=== PATIENT | female | born 1965 | race Caucasian/White ===

== ENCOUNTER 2017-05-04 18:19 | Emergency (ER) | payer MEDICAID, SELFPAY | END 2017-05-04 20:02 | disposition home or self-care (01) | PROVIDERS: Emergency Provider Nurse Practitioner; Visit Provider Nurse Practitioner | DX: R42 Dizziness and giddiness (principal); J06.9 Acute upper respiratory infection, unspecified | CPT/HCPCS: 81003; 87804; 99201 ==

== ENCOUNTER 2017-06-07 14:36 | Emergency (ER) | payer MEDICAID, SELFPAY ==
[2017-06-07 15:05] VITALS: BP 108/72; PULSE 78; RESP 16; TEMP 36.6; O2SAT 99; BMI 31.2
--- NOTE | 2017-06-07 16:12 | HMH.EDBACK ---
ED Disposition Clinical Impression: Lumbosacral strain Disposition: Home, Self-Care Condition on Discharge: Fair Instructions: DI for Low Back Pain Additional Instructions: 1- rest, off work x 2 days . 2- icy hot. 3- robaxin . 4- folllow up with Dr Malik in 2 days . Prescriptions: Methocarbamol [Robaxin 500mg Tab] 500 mg PO BID #21 tab Referrals: Darian Malik MD [Primary Care Provider] - - Critical Care Critical Care Time: No Attestation: On 06/07/17, the high probability of a clinically significant, sudden or life threatening deterioration of the following system(s) required my full and direct attention, intervention and personal management. The time I documented below is in addition to time spent performing reported procedures but includes the following listed in this critical care notation. Medical Decision Making - Medical Records Medical records reviewed: Yes: I reviewed the patient's medical records. Vital Signs: 06/07/17 15:05 Temperature 98 F Temperature Source Oral Pulse Rate [Left Radial] 78 Respiratory Rate 16 Blood Pressure [Left Arm] 108/72 Blood Pressure Mean [Left Arm] 84 Blood Pressure Source [Left Arm] Automatic Cuff Blood Pressure Position [Left Arm] Sitting 02 Sat by Pulse Oximetry 99 Oxygen Delivery Method Room Air - Sukh Inquiry Pt receiving controlled substance: No Sukh was queried for this patient: No Medical Decision Making Narrative: I had a full discussion with the patient about the care for her back. She understands she will need to be off work for 2 days. Rest and IcyHot. [facility] History I have reviewed the patient's past medical history: Yes Medical History: Denies:: Cancer, Diabetes Mellitus Type 1, Diabetes Mellitus Type 2, MRSA Amputation: No Fractures: No - *Social History Educational Level: Completed High School Smoking Status: Never smoker Alcohol Intake: never - Psychiatric History Expresses thoughts of harming self/others: None Suicide Plan Description: No Plan ROS Obtained: Yes All systems reviewed & no additional complaints Physical Exam - General General appearance: alert, in no apparent distress - Head Head exam: atraumatic, normocephalic, normal inspection - Eye Eye exam: Present: normal appearance, PERRL, EOMI - ENT ENT exam: Present: normal exam, normal oropharynx, mucous membranes moist, TM's normal bilaterally, normal external ear exam - Neck Neck exam: Present: normal inspection, full ROM, trachea midline. Absent: meningismus, lymphadenopathy - Chest Chest inspection: Present: normal inspection, symmetric chest wall rise. Absent: tenderness - Respiratory Respiratory exam: Present: normal lung sounds bilaterally. Absent: respiratory distress - Cardiovascular Cardiovascular exam: Present: regular rate, normal rhythm. Absent: JVD - Abdominal Exam Abdominal exam: Present: soft, normal bowel sounds. Absent: distention, tenderness, guarding - Extremities Exam Extremities exam: Present: normal inspection, full ROM, normal capillary refill. Absent: calf tenderness - Back Exam Back exam: Present: normal inspection, other (Maximum tenderness is over the sacrum.) - Neurological Exam Neurological exam: Present: alert, oriented X3, CN II-XII intact, motor sensory deficit, reflexes normal, other (Bilaterally straight leg raising is 90?. ) - Psychiatric Psychiatric exam: Present: normal affect, normal mood - Skin Skin exam: Present: warm, dry, intact, normal color - Lymphatic Lymphatic Findings: no adenopathy Back Pain HPI - General Chief Complaint: Back Pain/Injury Stated Complaint: AO 06/07/2017 LOWER BACK PAIN Mode of Arrival: Ambulatory Limitations: No Limitations Description of Symptoms (Recalled from ER Triage Doc. by RN): Back pain - History of Present Illness HPI Narrative: 52 years old with history of back pain works in housekeeping at [email or web address]. She was lifting yesterday
--- NOTE | 2017-06-07 16:15 | ED_ITS ---
ED Disposition Clinical Impression: Lumbosacral strain Disposition: Home, Self-Care Condition on Discharge: Fair Instructions: DI for Low Back Pain Additional Instructions: 1- rest, off work x 2 days . 2- icy hot. 3- robaxin . 4- folllow up with Dr Malik in 2 days . Prescriptions: Methocarbamol [Robaxin 500mg Tab] 500 mg PO BID #21 tab Referrals: Darian Malik MD [Primary Care Provider] - - Critical Care Critical Care Time: No Attestation: On 06/07/17, the high probability of a clinically significant, sudden or life threatening deterioration of the following system(s) required my full and direct attention, intervention and personal management. The time I documented below is in addition to time spent performing reported procedures but includes the following listed in this critical care notation. Medical Decision Making - Medical Records Medical records reviewed: Yes: I reviewed the patient's medical records. Vital Signs: 06/07/17 15:05 Temperature 98 F Temperature Source Oral Pulse Rate [Left Radial] 78 Respiratory Rate 16 Blood Pressure [Left Arm] 108/72 Blood Pressure Mean [Left Arm] 84 Blood Pressure Source [Left Arm] Automatic Cuff Blood Pressure Position [Left Arm] Sitting 02 Sat by Pulse Oximetry 99 Oxygen Delivery Method Room Air - Sukh Inquiry Pt receiving controlled substance: No Sukh was queried for this patient: No Medical Decision Making Narrative: I had a full discussion with the patient about the care for her back. She understands she will need to be off work for 2 days. Rest and IcyHot. [facility] History I have reviewed the patient's past medical history: Yes Medical History: Denies:: Cancer, Diabetes Mellitus Type 1, Diabetes Mellitus Type 2, MRSA Amputation: No Fractures: No - *Social History Educational Level: Completed High School Smoking Status: Never smoker Alcohol Intake: never - Psychiatric History Expresses thoughts of harming self/others: None Suicide Plan Description: No Plan ROS Obtained: Yes All systems reviewed & no additional complaints Physical Exam - General General appearance: alert, in no apparent distress - Head Head exam: atraumatic, normocephalic, normal inspection - Eye Eye exam: Present: normal appearance, PERRL, EOMI - ENT ENT exam: Present: normal exam, normal oropharynx, mucous membranes moist, TM's normal bilaterally, normal external ear exam - Neck Neck exam: Present: normal inspection, full ROM, trachea midline. Absent: meningismus, lymphadenopathy - Chest Chest inspection: Present: normal inspection, symmetric chest wall rise. Absent : tenderness - Respiratory Respiratory exam: Present: normal lung sounds bilaterally. Absent: respiratory distress - Cardiovascular Cardiovascular exam: Present: regular rate, normal rhythm. Absent: JVD - Abdominal Exam Abdominal exam: Present: soft, normal bowel sounds. Absent: distention, tenderness, guarding - Extremities Exam Extremities exam: Present: normal inspection, full ROM, normal capillary refill. Absent: calf tenderness - Back Exam Back exam: Present: normal inspection, other (Maximum tenderness is over the sacrum.) - Neurological Exam Neurological exam: Present: alert, oriented X3, CN II-XII intact, motor sensory deficit, reflexes normal, other (Bilaterally straight leg antonio
[2017-06-07 16:28] VITALS: BP 112/70; PULSE 74; TEMP 36.7; O2SAT 98
== END 2017-06-07 16:28 | disposition home or self-care (01) ==
PROVIDERS: Emergency Provider Emergency Medicine; Family Provider Internal Medicine Adolescent Medicine; PCP Emergency Medicine
DX: S39.012A Strain of muscle, fascia and tendon of lower back, initial encounter (principal)
CPT/HCPCS: 99283

== ENCOUNTER 2017-06-26 18:05 | Emergency (ER) | payer MEDICAID, SELFPAY ==
[2017-06-26 18:30] VITALS: BP 142/92; PULSE 83; RESP 18; TEMP 36.7; O2SAT 96; BMI 31.2
--- NOTE | 2017-06-26 18:34 | XR_ITS ---
EXAM: XR lumbar spine 2-3V HISTORY: Low back pain ITS.REASON: PULLED MUSCLE ORDERING PHYSICIAN: Leonel Lewis MD PATIENT AGE: 52 years COMPARISON: None FINDINGS: There is degenerative disc disease at T12-L1 and L1-L2 L4-L5 and L5-S1. No fracture or dislocation. No lytic or blastic change. Normal alignment. IMPRESSION: Lumbar spondylosis with degenerative disc disease at multiple levels worse at L5-S1
--- NOTE | 2017-06-26 22:13 | HMH.EDGENADL ---
ED Disposition Clinical Impression: Lumbosacral strain Qualifiers: Encounter type: initial encounter Qualified Code(s): S39.012A - Strain of muscle, fascia and tendon of lower back, initial encounter Disposition: Home, Self-Care Condition on Discharge: Good Instructions: DI for Low Back Pain Additional Instructions: use meds and see pcp for follow up - sedentary work only for 48 hrs Prescriptions: Meloxicam [Mobic 7.5mg Tab] 7.5 mg PO DAILY #10 tab Referrals: Darian Malik MD [Primary Care Provider] - - Critical Care Critical Care Time: No Attestation: On 06/26/17, the high probability of a clinically significant, sudden or life threatening deterioration of the following system(s) required my full and direct attention, intervention and personal management. The time I documented below is in addition to time spent performing reported procedures but includes the following listed in this critical care notation. Medical Decision Making - Medical Records Medical records reviewed: Yes: I reviewed the patient's medical records. Vital Signs: 06/26/17 18:30 Temperature 98.1 F Temperature Source Oral Pulse Rate [Right Brachial] 83 Respiratory Rate 18 Blood Pressure [Right Arm] 142/92 Blood Pressure Mean [Right Arm] 108 Blood Pressure Source [Right Arm] Automatic Cuff Blood Pressure Position [Right Arm] Sitting 02 Sat by Pulse Oximetry 96 Oxygen Delivery Method Room Air Orders (Tests/Meds): ED MEDICATIONS Generic Name Dose Route Start Last Admin Trade Name Freq PRN Reason Stop Dose Admin Tramadol HCl 1 pema 06/26/17 22:23 Ultram Take Home Pack 50mg (10) PO 06/26/17 22:24 ONCE ONE Discontinued Medications Generic Name Dose Route Start Last Admin Trade Name Freq PRN Reason Stop Dose Admin Indomethacin 25 mg 06/26/17 22:22 Indocin 25mg Capsule PO 06/26/17 22:23 ONCE ONE - Radiology Data #1 Image(s): L-Spine Image Reviewed: Yes I reviewed the patient's radiology image Preliminary Findings: Abnormal, No Fracture Seen - Sukh Inquiry Pt receiving controlled substance: No General Adult HPI - General Chief complaint: PAIN Stated complaint: lower back pain Time Seen by Provider: 06/26/17 22:13 Mode of Arrival: Ambulatory Source of Information: Patient, Medical Record Limitations: No Limitations Description of Symptoms (Recalled from ER Triage Doc. by RN): PULLED BACK MOVING COUCH ; LOW LUMBAR MUSCLE PAIN - History of Present Illness HPI narrative: pt with acute l/s pain after lifting - has hx of same Onset (ago): day(s) Location: back Radiation: back Severity: moderate Quality: aching Consistency: intermittent Associated symptoms: negative: fever/chills - Related Data Home Medications Medication Instructions Recorded Confirmed Methocarbamol [Robaxin 500mg Tab] 500 mg PO BID 06/26/17 06/26/17 Previous Rx's Medication Instructions Recorded Meloxicam [Mobic 7.5mg Tab] 7.5 mg PO DAILY #10 tab 06/26/17 Allergies Allergy/AdvReac Type Severity Reaction Status Date / Time No Known Allergies Allergy Verified 06/26/17 18:[address] [facility] History I have reviewed the patient's past medical history: Yes Medical History: Denies:: Cancer, Diabetes Mellitus Type 1, Diabetes Mellitus Type 2, MRSA Amputation: No Fractures: No - *Social History Educational Level: Completed High School Smoking Status: Current every day smoker Alcohol Intake: never - Psychiatric History Expresses thoughts of harming self/others: None Suicide Plan Description: No Plan ROS Obtained: Yes All systems reviewed & no additional complaints - Constitutional Constitutional: Denies fever(s) - Eyes Eyes: Denies change in vision - ENT Ears, Nose, Mouth, and Throat: Denies sore throat - Cardiovascular Cardiovascular: Denies chest pain - Respiratory Respiratory: No chest congestion, No cough - Gastrointestinal Gastrointestingal: Denies: abdomin
--- NOTE | 2017-06-26 22:16 | ED_ITS ---
ED Disposition Clinical Impression: Lumbosacral strain Qualifiers: Encounter type: initial encounter Qualified Code(s): S39.012A - Strain of muscle, fascia and tendon of lower back, initial encounter Disposition: Home, Self-Care Condition on Discharge: Good Instructions: DI for Low Back Pain Additional Instructions: use meds and see pcp for follow up - sedentary work only for 48 hrs Prescriptions: Meloxicam [Mobic 7.5mg Tab] 7.5 mg PO DAILY #10 tab Referrals: Darian Malik MD [Primary Care Provider] - - Critical Care Critical Care Time: No Attestation: On 06/26/17, the high probability of a clinically significant, sudden or life threatening deterioration of the following system(s) required my full and direct attention, intervention and personal management. The time I documented below is in addition to time spent performing reported procedures but includes the following listed in this critical care notation. Medical Decision Making - Medical Records Medical records reviewed: Yes: I reviewed the patient's medical records. Vital Signs: 06/26/17 18:30 Temperature 98.1 F Temperature Source Oral Pulse Rate [Right Brachial] 83 Respiratory Rate 18 Blood Pressure [Right Arm] 142/92 Blood Pressure Mean [Right Arm] 108 Blood Pressure Source [Right Arm] Automatic Cuff Blood Pressure Position [Right Arm] Sitting 02 Sat by Pulse Oximetry 96 Oxygen Delivery Method Room Air Orders (Tests/Meds): ED MEDICATIONS Generic Name Dose Route Start Last Admin Trade Name Freq PRN Reason Stop Dose Admin Tramadol HCl 1 pema 06/26/17 22:23 Ultram Take Home Pack 50mg (10) PO 06/26/17 22:24 ONCE ONE Discontinued Medications Generic Name Dose Route Start Last Admin Trade Name Freq PRN Reason Stop Dose Admin Indomethacin 25 mg 06/26/17 22:22 Indocin 25mg Capsule PO 06/26/17 22:23 ONCE ONE - Radiology Data #1 Image(s): L-Spine Image Reviewed: Yes I reviewed the patient's radiology image Preliminary Findings: Abnormal, No Fracture Seen - Sukh Inquiry Pt receiving controlled substance: No General Adult HPI - General Chief complaint: PAIN Stated complaint: lower back pain Time Seen by Provider: 06/26/17 22:13 Mode of Arrival: Ambulatory Source of Information: Patient, Medical Record Limitations: No Limitations Description of Symptoms (Recalled from ER Triage Doc. by RN): PULLED BACK MOVING COUCH ; LOW LUMBAR MUSCLE PAIN - History of Present Illness HPI narrative: pt with acute l/s pain after lifting - has hx of same Onset (ago): day(s) Location: back Radiation: back Severity: moderate Quality: aching Consistency: intermittent Associated symptoms: negative: fever/chills - Related Data Home Medications Medication Instructions Recorded Confirmed Methocarbamol [Robaxin 500mg Tab] 500 mg PO BID 06/26/17 06/26/17 Previous Rx's Medication Instructions Recorded Meloxicam [Mobic 7.5mg Tab] 7.5 mg PO DAILY #10 tab 06/26/17 Allergies Allergy/AdvReac Type Severity Reaction Status Date / Time No Known Allergies Allergy Verified 06/26/17 18:36 [facility] History I have reviewed the patient's past medical history:
[2017-06-26 22:40] VITALS: BP 142/92; PULSE 83; RESP 18; TEMP 36.7; O2SAT 96
== END 2017-06-26 22:41 | disposition home or self-care (01) ==
PROVIDERS: Emergency Provider Emergency Medicine; Family Provider Internal Medicine Adolescent Medicine; PCP Emergency Medicine
DX: S39.012A Strain of muscle, fascia and tendon of lower back, initial encounter (principal); X50.0XXA Overexertion from strenuous movement or load, initial encounter; Y92.009 Unspecified place in unspecified non-institutional (private) residence as the place of occurrence of the external cause
CPT/HCPCS: 72100; 99281

== ENCOUNTER 2018-10-15 17:18 | Emergency (ER) | payer MEDICAID, SELFPAY ==
[2018-10-15 17:37] VITALS: BP 147/81; PULSE 84; RESP 20; TEMP 36.6; O2SAT 96; BMI 27.3
[2018-10-15 17:49] VITALS: BP 116/83; PULSE 73; O2SAT 95
--- NOTE | 2018-10-15 18:01 | CT_ITS ---
CT head/brain wo con HISTORY: Dizziness, headache, nausea, vomiting ITS.REASON: dizzy ORDERING PHYSICIAN: PATIENT AGE: 53 years COMPARISON: None TECHNIQUE: Axial images obtained without contrast. Brain and bone windows reviewed. All CT scans at the facility use one or more dose reduction, viz: automated exposure control, ma/kV adjustment per patient size (including targeted exams where dose is matched to indication, i.e. head), or iterative reconstruction technique. FINDINGS: There are low-density changes in the left frontal region with a small hyperdensity in the left frontal region laterally measuring 8 mm. There is moderate surrounding vasogenic edema. No midline shift is evident. No intraventricular hemorrhage or hydrocephalus. No acute calvarial abnormality. IMPRESSION: 1. Left frontal lobe lesion with surrounding vasogenic edema consistent with frontal lobe mass. The dimensions are difficult to determine. The area of hyperdensity measures 8 mm and may not represent the total extent of the mass. Enhanced CT or further MRI suggested for follow-up evaluation. The area of hyperdensity may represent part of a hemorrhagic lesion. No midline shift or hydrocephalus.
--- NOTE | 2018-10-15 18:03 | HMH.EDGENADL ---
ED Disposition Clinical Impression: Brain mass Disposition: Xfer Short-Term Hosp Condition on Discharge: Good - Critical Care Critical Care Time: No Attestation: On , the high probability of a clinically significant, sudden or life threatening deterioration of the following system(s) required my full and direct attention, intervention and personal management. The time I documented below is in addition to time spent performing reported procedures but includes the following listed in this critical care notation. Medical Decision Making - Medical Records Medical records reviewed: Yes: I reviewed the patient's medical records. - Sukh Inquiry Pt receiving controlled substance: No Vital Signs: 10/15/18 17:37 10/15/18 17:49 Temperature 97.8 F Temperature Source Oral Pulse Rate [Left Radial] 84 73 Respiratory Rate 20 Blood Pressure [Right Arm] 147/81 H 116/83 Blood Pressure Mean [Right Arm] 103 94 Blood Pressure Source [Right Arm] Automatic Cuff Blood Pressure Position [Right Arm] Sitting 02 Sat by Pulse Oximetry 96 95 Oxygen Delivery Method Room Air - Lab Data Lab results reviewed: Yes: I reviewed the patient's lab results. Lab Results 10/15/18 17:50: WBC 7.7, RBC 4.76, Hgb 14.7, Hct 42.3, MCV 89.0, MCH 31.0, MCHC 34.8, RDW 12.2, Plt Count 378, MPV 6.2 L, Neut % (Auto) 79.9, Lymph % (Auto) 14.4, [place] % (Auto) 4.8, Eos % (Auto) 0.4, Baso % (Auto) 0.5, Neut # (Auto) 6.1, Lymph # (Auto) 1.1, [place] # (Auto) 0.4, Eos # (Auto) 0.0, Baso # (Auto) 0.0 10/15/18 17:50: Sodium 142, Potassium 4.5, Chloride 105, Carbon Dioxide 28, Anion Gap 13.5, BUN 16, Creatinine 1.05 H, Estimated Creat Clear 61, Estimated GFR 55 L, Est GFR ( Amer) 66, Glucose 123 H, Calcium 9.7, Total Bilirubin 0.7, AST 18, ALT 38, Alkaline Phosphatase 97, Troponin I < 0.02, Total Protein 7.6, Albumin 3.6, Globulin 4.0 H, Albumin/Globulin Ratio 0.9 L, Plasma/Serum Alcohol 0 Result diagrams: 10/15/18 17:50 10/15/18 17:50 Orders (Tests/Meds): ED MEDICATIONS Generic Name Dose Route Start Last Admin Trade Name Freq PRN Reason Stop Dose Admin Sodium Chloride 1,000 mls @ 999 mls/hr 10/15/18 18:15 10/15/18 18:08 Sod Chlor 0.9% 1000ml Bag IV 10/15/18 19:15 999 mls/hr .Q1H1M [facility]ALI Administration Discontinued Medications Generic Name Dose Route Start Last Admin Trade Name Freq PRN Reason Stop Dose Admin Meclizine HCl 25 mg 10/15/18 18:02 10/15/18 18:08 Antivert 25mg Tablet PO 10/15/18 18:03 25 mg ONCE ONE Administration ORDERS Category Date Time Status Drug Screen,Urine Stat Lab 10/15/18 18:01 Ordered ECG Request by /Nse Stat Y 10/15/18 18:01 Ordered - CT Data CT Scan: Head Time Received: 18:[address] Reviewed: Yes: I have viewed the radiologist's interpretation Preliminary Findings: Abnormal Findings Narrative: left frontal mass w/ edema cannot r/o bleed, pt accepted by helicopter transfer to ED by Dr Ramirez ([facility]), pt vss, speech fluent, GCS 15 - ECG Data Tracing #1 I reviewed this ECG and interpreted as documented below: Normal Sinus Rhythm: Yes (no stemi) General Adult HPI - General Chief complaint: Dizziness Stated complaint: Nausa,dizzy,vomiting Time Seen by Provider: 10/15/18 18:03 Mode of Arrival: Ambulatory Limitations: No Limitations Description of Symptoms (Recalled from ER Triage Doc. by RN): c/o dizziness that started one week ago and has hx of vertigo with nausea and vomiting, states it is different everytime so she isnt sure if this is vertigo or not. The dizziness went away for a few weeks and then today she woke up with the same feeling. 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 Only dizzy when she lays down with some blurry vision - History of Present Illness HPI narrative: mild to mod dizziness for one week, feels the room spins if she turns the wrong way, no hearing loss or headache, no fever, no
--- NOTE | 2018-10-15 18:06 | ED_ITS ---
ED Disposition Clinical Impression: Brain mass Disposition: Xfer Short-Term Hosp Condition on Discharge: Good - Critical Care Critical Care Time: No Attestation: On , the high probability of a clinically significant, sudden or life threatening deterioration of the following system(s) required my full and direct attention, intervention and personal management. The time I documented below is in addition to time spent performing reported procedures but includes the following listed in this critical care notation. Medical Decision Making - Medical Records Medical records reviewed: Yes: I reviewed the patient's medical records. - Sukh Inquiry Pt receiving controlled substance: No Vital Signs: 10/15/18 17:37 10/15/18 17:49 Temperature 97.8 F Temperature Source Oral Pulse Rate [Left Radial] 84 73 Respiratory Rate 20 Blood Pressure [Right Arm] 147/81 H 116/83 Blood Pressure Mean [Right Arm] 103 94 Blood Pressure Source [Right Arm] Automatic Cuff Blood Pressure Position [Right Arm] Sitting 02 Sat by Pulse Oximetry 96 95 Oxygen Delivery Method Room Air - Lab Data Lab results reviewed: Yes: I reviewed the patient's lab results. Lab Results 10/15/18 17:50: WBC 7.7, RBC 4.76, Hgb 14.7, Hct 42.3, MCV 89.0, MCH 31.0, MCHC 34.8, RDW 12.2, Plt Count 378, MPV 6.2 L, Neut % (Auto) 79.9, Lymph % (Auto) 14.4, [place] % (Auto) 4.8, Eos % (Auto) 0.4, Baso % (Auto) 0.5, Neut # (Auto) 6.1, Lymph # (Auto) 1.1, [place] # (Auto) 0.4, Eos # (Auto) 0.0, Baso # (Auto) 0.0 10/15/18 17:50: Sodium 142, Potassium 4.5, Chloride 105, Carbon Dioxide 28, Anion Gap 13.5, BUN 16, Creatinine 1.05 H, Estimated Creat Clear 61, Estimated GFR 55 L, Est GFR ( Amer) 66, Glucose 123 H, Calcium 9.7, Total Bilirubin 0.7, AST 18, ALT 38, Alkaline Phosphatase 97, Troponin I < 0.02, Total Protein 7.6, Albumin 3.6, Globulin 4.0 H, Albumin/Globulin Ratio 0.9 L, Plasma/Serum Alcohol 0 Result diagrams: 10/15/18 17:50 10/15/18 17:50 Orders (Tests/Meds): ED MEDICATIONS Generic Name Dose Route Start Last Admin Trade Name Freq PRN Reason Stop Dose Admin Sodium Chloride 1,000 mls @ 999 mls/hr 10/15/18 18:15 10/15/18 18:08 Sod Chlor 0.9% 1000ml Bag IV 10/15/18 19:15 999 mls/hr .Q1H1M [facility] Administration Discontinued Medications Generic Name Dose Route Start Last Admin Trade Name Freq PRN Reason Stop Dose Admin Meclizine HCl 25 mg 10/15/18 18:02 10/15/18 18:08 Antivert 25mg Tablet PO 10/15/18 18:03 25 mg ONCE ONE Administration ORDERS Category Date Time Status Drug Screen,Urine Stat Lab 10/15/18 18:01 Ordered ECG Request by /Nse Stat Y 10/15/18 18:01 Ordered - CT Data CT Scan: Head Time Received: 18:[address] Reviewed: Yes: I have viewed the radiologist's interpretation Preliminary Findings: Abnormal Findings Narrative: left frontal mass w/ edema cannot r/o bleed, pt accepted by helicopter transfer to ED by Dr Ramirez ([facility]), pt vss, speech fluent, GCS 15 - ECG Data Tracing #1 I reviewed this ECG and interpreted as documented below: Normal Sinus Rhythm: Yes (no stemi)
--- NOTE | 2018-10-15 18:12 | PC.NURSE ---
pt back from ct
[2018-10-15 18:13] LABS: Basophils % 0.5 % (0.1-2.0); Eosinophils % 0.4 % (0.1-12.0); Hematocrit 42.3 % (37.0-47.0); Hemoglobin 14.7 g/dL (12.2-16.2); Lymphocytes # 1.1 K/mm3 (0.7-4.5); Lymphocytes % 14.4 % (10-50); Mean Corpuscular HGB Conc 34.8 g/dL (31.8-35.4); Mean Platelet Volume 6.2 fl (7.4-10.4); Monocytes # 0.4 K/mm3 (0.1-1.0); Monocytes % 4.8 % (1.7-9.3); Neutrophils # 6.1 K/mm3 (1.8-7.8); Neutrophils % 79.9 % (37.0-80.0); Platelet Count 378 K/mm3 (142-424); Red Blood Count 4.76 M/mm3 (4.20-5.40); Red Cell Distribution Width 12.2 % (11.5-17.5); White Blood Count 7.7 K/mm3 (4.8-10.8)
[2018-10-15 18:23] LABS: Alanine Aminotransferase 38 U/L (12-78); Albumin Level 3.6 gm/dL (3.4-5.0); Albumin/Globulin Ratio 0.9 (1.1-1.8); Alkaline Phosphatase 97 U/L (46-116); Anion Gap 13.5 mEq/L (5-15); Aspartate Amino Transferase 18 U/L (15-37); Bilirubin,Total 0.7 mg/dL (0.2-1.0); Blood Urea Nitrogen 16 mg/dL (7-18); Calcium 9.7 mg/dL (8.5-10.1); Carbon Dioxide 28 mmol/L (21.0-32.0); Chloride 105 mmol/L (98-107); Creatinine Clearance Estimated 61 mL/min (50-200); Creatinine,Serum 1.05 mg/dL (0.55-1.02); Estimated Glomerular Filt Rate 55 ml/min (>60); GFR (African American) 66 ML/MIN (>60); Glucose 123 mg/dL (74-106); Potassium 4.5 mmoL/L (3.5-5.1); Sodium 142 mmol/L (136-145); Total Protein,Serum 7.6 gm/dL (6.4-8.2); Troponin I < 0.02 ng/ml (0.00-0.06)
[2018-10-15 18:26] LABS: Ethyl Alcohol 0 mg/dL (0-99)
--- NOTE | 2018-10-15 18:48 | PC.NURSE ---
DR HARTLEY IS SPEAKING WITH TRAUMA CORDINATOR FROM [facility]
--- NOTE | 2018-10-15 18:50 | PC.NURSE ---
DR MATHEWS HAS ACCEPTED , DR HARTLEY REQUEST [facility]
--- NOTE | 2018-10-15 18:55 | PC.NURSE ---
[facility] CONTACTED ETA 22 MIN
--- NOTE | 2018-10-15 18:56 | PC.NURSE ---
FACE SHEET FAXED [facility] HAS ACCEPTED
[2018-10-15 19:18] VITALS: BP 155/110; PULSE 100; RESP 18; TEMP 36.6; O2SAT 98
== END 2018-10-15 19:45 | disposition short-term general hospital (02) ==
PROVIDERS: Emergency Provider Emergency Medicine Emergency Medical Services
DX: G93.9 Disorder of brain, unspecified (principal)
CPT/HCPCS: 70450; 80053; 84484; 85025; 93005; 96365; 99284

== ENCOUNTER 2018-10-27 18:36 | Emergency (ER) | payer MEDICAID, SELFPAY ==
[2018-10-27 18:58] VITALS: BP 153/88; PULSE 81; RESP 18; TEMP 36.5; O2SAT 93; BMI 29.0
--- NOTE | 2018-10-27 18:58 | XR_ITS ---
XR chest 2V HISTORY: ITS.REASON: chest heaviness ORDERING PHYSICIAN: David Antoine MD PATIENT AGE: 53 years COMPARISON: None FINDINGS: The cardiomediastinal silhouette and pulmonary vascularity are within normal limits. The lungs are clear without infiltrates, suspicious nodules, or pleural effusions. No acute bony abnormalities. IMPRESSION: Negative chest, no acute finding
--- NOTE | 2018-10-27 19:05 | PC.NURSE ---
pt to rad
[2018-10-27 19:32] LABS: Basophils # 0.1 K/mm3 (0-0.2); Basophils % 0.3 % (0.1-2.0); Eosinophils % 0.1 % (0.1-12.0); Hematocrit 41.8 % (37.0-47.0); Hemoglobin 13.3 g/dL (12.2-16.2); Lymphocytes % 5.9 % (10-50); Mean Corpuscular HGB Conc 31.7 g/dL (31.8-35.4); Mean Corpuscular Hemoglobin 28.8 pg (27.0-31.2); Mean Corpuscular Volume 90.9 fl (81-99); Mean Platelet Volume 6.3 fl (7.4-10.4); Monocytes % 5.6 % (1.7-9.3); Neutrophils # 15.1 K/mm3 (1.8-7.8); Neutrophils % 88.1 % (37.0-80.0); Platelet Count 415 K/mm3 (142-424); Red Cell Distribution Width 12.9 % (11.5-17.5); White Blood Count 17.1 K/mm3 (4.8-10.8)
[2018-10-27 19:36] LABS: MANUAL DIFFERENTIAL MANUAL DIFFERENTIAL (MANUAL DIFF)
[2018-10-27 19:40] LABS: Blood Urea Nitrogen 24 mg/dL (7-18); Calcium 8.7 mg/dL (8.5-10.1); Carbon Dioxide 24 mmol/L (21.0-32.0); Chloride 104 mmol/L (98-107); Creatinine Clearance Estimated 70 mL/min (50-200); Creatinine,Serum 1.18 mg/dL (0.55-1.02); Estimated Glomerular Filt Rate 48 ml/min (>60); GFR (African American) 58 ML/MIN (>60); Glucose 110 mg/dL (74-106); Sodium 139 mmol/L (136-145); Troponin I < 0.02 ng/ml (0.00-0.06)
[2018-10-27 19:42] LABS: Lymphocytes % 4 % (10-50); Monocytes % 1 % (2-9); Neutrophils % 90 % (42-76); Platelet Estimate Normal; RBC Morphology Normal; Total Cells Counted 100
--- NOTE | 2018-10-27 20:03 | HMH.EDCP ---
ED Disposition Clinical Impression: Atypical chest pain Disposition: Home, Self-Care Condition on Discharge: Good Instructions: DI for Atypical Chest Pain Additional Instructions: use meds and see pcp for follow up Prescriptions: Fluconazole [Diflucan 100mg tablet] 100 mg PO DAILY #5 tab Referrals: Provider,Referral, [Primary Care Provider] - - Critical Care Critical Care Time: No Attestation: On 10/27/18, the high probability of a clinically significant, sudden or life threatening deterioration of the following system(s) required my full and direct attention, intervention and personal management. The time I documented below is in addition to time spent performing reported procedures but includes the following listed in this critical care notation. Medical Decision Making - Medical Records Medical records reviewed: Yes: I reviewed the patient's medical records. - Sukh Inquiry Pt receiving controlled substance: No Vital Signs: 10/27/18 18:58 10/27/18 20:18 10/27/18 20:32 Temperature 97.7 F Temperature Source Temporal Artery Scan Pulse Rate [Right Brachial] 81 70 77 Respiratory Rate 18 16 18 Blood Pressure [Right Arm] 153/88 H 132/72 132/74 Blood Pressure Mean [Right Arm] 109 92 93 Blood Pressure Source [Right Arm] Automatic Cuff Automatic Cuff Automatic Cuff Blood Pressure Position [Right Arm] Sitting Sitting Sitting 02 Sat by Pulse Oximetry 93 L 97 97 Oxygen Delivery Method Room Air Room Air Room Air - Lab Data Lab results reviewed: Yes: I reviewed the patient's lab results. Lab Results 10/27/18 19:10: WBC 17.1 H, RBC 4.60, Hgb 13.3, Hct 41.8, MCV 90.9, MCH 28.8, MCHC 31.7 L, RDW 12.9, Plt Count 415, MPV 6.3 L, Neut % (Auto) 88.1 H, Lymph % (Auto) 5.9 L, Prentiss % (Auto) 5.6, Eos % (Auto) 0.1, Baso % (Auto) 0.3, Neut # (Auto) 15.1 H, Lymph # (Auto) 1.0, Prentiss # (Auto) 1.0, Eos # (Auto) 0.0, Baso # (Auto) 0.1, Total Counted 100, Neutrophils % (Manual) 90 H, Band Neutrophils % 5.0, Lymphocytes % (Manual) 4 L, Monocytes % (Manual) 1 L, Platelet Estimate Normal, RBC Morphology Normal 10/27/18 19:10: Sodium 139, Potassium 4.0, Chloride 104, Carbon Dioxide 24, Anion Gap 15.0, BUN 24 H, Creatinine 1.18 H, Estimated Creat Clear 70, Estimated GFR 48 L, Est GFR ( Amer) 58 L, Glucose 110 H, Calcium 8.7, Troponin I < 0.02 Result diagrams: 10/27/18 19:10 10/27/18 19:10 Orders (Tests/Meds): ED MEDICATIONS Discontinued Medications Generic Name Dose Route Start Last Admin Trade Name Freq PRN Reason Stop Dose Admin Belladonna Alkaloids 60 ml 10/27/18 20:56 Gi Cocktail 60ml Udc PO 10/27/18 20:57 ONCE ONE Famotidine 20 mg 10/27/18 20:05 10/27/18 20:17 Pepcid 20mg/2ml Vial IV 10/27/18 20:06 20 mg ONCE ONE Administration Metoclopramide HCl 10 mg 10/27/18 20:05 10/27/18 20:17 Reglan 10mg/2ml Vial IVP 10/27/18 20:06 10 mg ONCE ONE Administration - Radiology Data #1 Image(s): Chest Image Reviewed: Yes I reviewed the patient's radiology image Preliminary Findings: Normal/NAD - ECG Data Tracing #1 Normal Sinus Rhythm: Yes Ischemic changes: non-specific ST-T wave changes - Reevaluation(s) Time: 21:09 Reevaluation #1: better after gi cocktail Chest Pain HPI - General Chief Complaint: Chest Pain Stated Complaint: POSSIBLE SIDE EFFECTS TO MED Time Seen by Provider: 10/27/18 20:00 Mode of Arrival: Family Vehicle Source of Information: Patient, Medical Record Limitations: No Limitations Description of Symptoms (Recalled from ER Triage Doc. by RN): chest heaviness, heart rhythm out of wack; concerned it might be the dexamethasone, but is steadily increasing - History of Present Illness HPI narrative: pt with heavy feeling in chest assoc with meals and no sob or cough - no known heart dis - has been on steroids for brain mass MD complaint: chest pain Onset (ago): day(s) Duration: intermittent Activity at onset: other (eating ) Pa
[2018-10-27 20:18] VITALS: BP 132/72; PULSE 70; RESP 16; O2SAT 97
[2018-10-27 20:32] VITALS: BP 132/74; PULSE 77; RESP 18; O2SAT 97
[2018-10-27 21:30] VITALS: BP 126/69; PULSE 66; RESP 16; TEMP 36.9; O2SAT 98
== END 2018-10-27 21:31 | disposition home or self-care (01) ==
PROVIDERS: Emergency Provider Emergency Medicine
DX: R07.89 Other chest pain (principal); R10.13 Epigastric pain; G93.9 Disorder of brain, unspecified; F41.9 Anxiety disorder, unspecified; E78.5 Hyperlipidemia, unspecified
CPT/HCPCS: 71046; 80048; 84484; 85007; 85025; 93005; 96374; 96375; 99284

== ENCOUNTER → 2020-07-18 17:09 | Outpatient (CLI) | payer MEDICAID, SELFPAY ==
[2020-07-18 18:16] LABS: Basophils # 0.1 K/mm3 (0-0.2); Basophils % 0.9 % (0.1-2.0); Eosinophils # 0.1 K/mm3 (0.0-0.4); Eosinophils % 1.4 % (0.1-12.0); Hematocrit 45.4 % (37.0-47.0); Hemoglobin 14.7 g/dL (12.2-16.2); Lymphocytes % 17.1 % (10-50); Mean Corpuscular HGB Conc 32.5 g/dL (31.8-35.4); Mean Corpuscular Hemoglobin 30.7 pg (27.0-31.2); Mean Corpuscular Volume 94.5 fl (81-99); Mean Platelet Volume 7.3 fl (7.4-10.4); Monocytes # 0.5 K/mm3 (0.1-1.0); Monocytes % 7.9 % (1.7-9.3); Neutrophils # 4.4 K/mm3 (1.8-7.8); Neutrophils % 72.8 % (37.0-80.0); Platelet Count 395 K/mm3 (142-424); Red Cell Distribution Width 12.8 % (11.5-17.5); White Blood Count 6.1 K/mm3 (4.8-10.8)
[2020-07-18 18:19] LABS: Alanine Aminotransferase 22 U/L (12-78); Albumin Level 4.5 g/dl (3.5-5.0); Albumin/Globulin Ratio 1.4 (1.1-1.8); Alkaline Phosphatase 89 U/L (38-126); Anion Gap 14.7 mEq/L (5-15); Aspartate Amino Transferase 26 U/L (14-36); Bilirubin,Total 0.6 mg/dl (0.2-1.3); Blood Urea Nitrogen 16 mg/dl (7-17); Calcium 10.4 mg/dl (8.4-10.2); Carbon Dioxide 24 mmol/L (22.0-30.0); Chloride 106 mmol/L (98-107); Chol/HDL Ratio 3.1 (1-3.5); Cholesterol 199 mg/dl (140-200); Estimated Glomerular Filt Rate 65 ml/min (>60); GFR (African American) 78 ML/MIN (>60); Globulin 3.2 g/dL (1.3-3.2); Glucose 112 mg/dl (74-100); HDL Cholesterol 64 mg/dl (40-60); Potassium 4.7 mmoL/L (3.5-5.1); Sodium 140 mmol/L (136-145); Total Protein,Serum 7.7 g/dl (6.3-8.2); Triglycerides 96 mg/dl (30-150); VLDL Cholesterol 19 mg/dL (0-40)
[2020-07-18 18:31] LABS: Direct LDL Cholesterol 104.19 mg/dL (100-129)
[2020-07-18 18:36] LABS: 25-OH Vitamin D, Total 14.9 ng/mL (30-100)
[2020-07-18 18:37] LABS: T4 (Thyroxine) 8.4 ug/dl (5.53-11.0)
[2020-07-18 18:51] LABS: Thyroid Stimulating Hormone 2.21 uIU/mL (0.465-4.68)
[2020-07-18 19:15] LABS: Hemoglobin A1C 5.6 % (4.0-6.0)
[2020-07-21 09:33] LABS: Barbiturates Screen,Urine Negative ng/ml (<200); Benzodiazepines Screen,Urine Negative ng/ml (<200)
[2020-07-21 09:34] LABS: Amphetamine/Metha Screen,Urine Negative ng/ml (<1000)
[2020-07-21 09:35] LABS: Cannabinoid Screen,Urine Negative ng/ml (<50); Cocaine Screen,Urine Negative ng/ml (<300)
[2020-07-21 09:36] LABS: Methadone Screen,Urine Negative ng/ml (<300); Opiate Screen,Urine Negative ng/ml (<300)
[2020-07-21 09:37] LABS: Phencyclidine Screen,Urine Negative ng/ml (<25)
== END ==
PROVIDERS: Visit Provider Nurse Practitioner Family
DX: F41.9 Anxiety disorder, unspecified (principal); G93.9 Disorder of brain, unspecified; R73.09 Other abnormal glucose; E55.9 Vitamin D deficiency, unspecified
CPT/HCPCS: 80053; 80061; 80305; 82306; 83036; 84436; 84443; 85025

== ENCOUNTER → 2020-08-01 16:54 | Outpatient (CLI) | payer MEDICAID, SELFPAY ==
[2020-08-05 13:37] LABS: Neisseria gonorrhoeae, NAA Negative (Negative)
== END ==
PROVIDERS: Visit Provider Nurse Practitioner Family
DX: L29.9 Pruritus, unspecified (principal)
CPT/HCPCS: 87491; 87591

== ENCOUNTER 2020-12-15 15:26 | Emergency (ER) | payer MEDICAID, SELFPAY ==
[2020-12-15 15:27] VITALS: BP 144/91; PULSE 73; RESP 12; TEMP 36.7; O2SAT 98; BMI 28.9
--- NOTE | 2020-12-15 15:43 | CT_ITS ---
PROCEDURE: CT HEAD/BRAIN WO CON CLINICAL INDICATION: dizziness, known tumor COMPARISON: CT HEADWO CT head/brain wo con from 10/15/2018 TECHNIQUE: Axial images obtained. All CT scans at the facility use one or more dose reduction, viz: automated exposure control, ma/kV adjustment per patient size (including targeted exams where dose is matched to indication, i.e. head), or iterative reconstruction technique. FINDINGS: There is an area of decreased attenuation within the left frontal lobe not significantly changed compared to the exam 10/15/2018. There is a small focus of calcification along the lateral aspect at this area hypoattenuation. This may be due to an area of encephalomalacia with dystrophic calcification. No mass effect is evident at this time. No midline shift, mass effect, intracranial hemorrhage, or hydrocephalus is evident. There is an opacified right mid ethmoid air cell. IMPRESSION: Persistent low-density changes in the left frontal lobe somewhat less apparent compared to the previous study possibly due to an area of encephalomalacia change with dystrophic calcification laterally. Treated neoplasm would be included in the differential diagnosis. Dictated by: Jorge Nash MD 12/15/2020 16:26 Jorge Nash MD in [place] 12/15/2020 16:26
[2020-12-15 15:53] LABS: Basophils # 0.1 K/mm3 (0-0.2); Basophils % 1.2 % (0.1-2.0); Eosinophils % 0.6 % (0.1-12.0); Hemoglobin 15.5 g/dL (12.2-16.2); Lymphocytes # 1.3 K/mm3 (0.7-4.5); Lymphocytes % 18.8 % (10-50); Mean Corpuscular HGB Conc 33.6 g/dL (31.8-35.4); Mean Corpuscular Hemoglobin 30.5 pg (27.0-31.2); Mean Corpuscular Volume 90.8 fl (81-99); Mean Platelet Volume 7.5 fl (7.4-10.4); Monocytes # 0.5 K/mm3 (0.1-1.0); Monocytes % 7.2 % (1.7-9.3); Neutrophils # 4.9 K/mm3 (1.8-7.8); Neutrophils % 72.3 % (37.0-80.0); Platelet Count 436 K/mm3 (142-424); Red Blood Count 5.07 M/mm3 (4.20-5.40); Red Cell Distribution Width 12.9 % (11.5-17.5); White Blood Count 6.8 K/mm3 (4.8-10.8)
--- NOTE | 2020-12-15 15:58 | PC.NURSE ---
Pt with rad.
[2020-12-15 15:59] LABS: Alanine Aminotransferase 20 U/L (12-78); Albumin Level 4.6 g/dl (3.5-5.0); Albumin/Globulin Ratio 1.3 (1.1-1.8); Alkaline Phosphatase 92 U/L (38-126); Anion Gap 11.6 mEq/L (5-15); Aspartate Amino Transferase 25 U/L (14-36); Bilirubin,Total 0.7 mg/dl (0.2-1.3); Blood Urea Nitrogen 15 mg/dl (7-17); Carbon Dioxide 29 mmol/L (22.0-30.0); Chloride 105 mmol/L (98-107); Creatinine Clearance Estimated 67 mL/min (50-200); Estimated Glomerular Filt Rate 57 ml/min (>60); GFR (African American) 69 ML/MIN (>60); Globulin 3.6 g/dL (1.3-3.2); Glucose 120 mg/dl (74-100); Potassium 3.6 mmoL/L (3.5-5.1); Sodium 142 mmol/L (136-145); Total Protein,Serum 8.2 g/dl (6.3-8.2)
[2020-12-15 16:02] LABS: Microscopic, Urine URINE MICROSCOPIC (MICROSCOPIC)
[2020-12-15 16:10] LABS: Appearance,Urine SL CLOUDY (Clear); Bilirubin,Urine Negative (Negative); Blood, Urine 1+ (Negative); Color,Urine YELLOW (Yellow); Glucose,Urine (UA) Negative (Negative); Ketones,Urine Negative (Negative); Leukocyte Esterase,Urine 3+ (Negative); Nitrate,Urine POSITIVE (Negative); Protein,Urine Negative (Negative); Specific Gravity, Urine 1.025 (1.005-1.030); Urobilinogen,Urine 0.2 EU/dl (0.2)
--- NOTE | 2020-12-15 16:13 | PC.NURSE ---
Pt returned from rad.
--- NOTE | 2020-12-15 16:27 | HMH.EDGENADL ---
ED Disposition Clinical Impression: Benign paroxysmal positional vertigo Qualifiers: Laterality: unspecified laterality Qualified Code(s): H81.10 - Benign paroxysmal vertigo, unspecified ear Disposition: Home, Self-Care Condition on Discharge: Good Instructions: Vertigo, Fainting Additional Instructions: Please take meclizine as needed for symptom management. Please follow-up with your PCP for further evaluation. Prescriptions: Meclizine HCl [Meclizine 25mg Tab] 25 mg PO Q6H PRN #20 tab PRN Reason: Vertigo Prescription Printed Referrals: Yanique Marina APRN [Primary Care Provider] - Forms: Work/School Release - Critical Care Critical Care Time: No Attestation: On 12/15/20, the high probability of a clinically significant, sudden or life threatening deterioration of the following system(s) required my full and direct attention, intervention and personal management. The time I documented below is in addition to time spent performing reported procedures but includes the following listed in this critical care notation. Medical Decision Making - Medical Records Medical records reviewed: Yes: I reviewed the patient's medical records. - Sukh Inquiry Pt receiving controlled substance: No Vital Signs: 12/15/20 15:27 12/15/20 16:30 Temperature 98.1 F Temperature Source Oral Pulse Rate 68 Pulse Rate [Right Radial] 73 Respiratory Rate 12 13 Blood Pressure 144/81 H Blood Pressure [Right Arm] 144/91 H Blood Pressure Mean [Right Arm] 108 Blood Pressure Source [Right Arm] Automatic Cuff Blood Pressure Position [Right Arm] Sitting 02 Sat by Pulse Oximetry 98 100 Oxygen Delivery Method Room Air - Lab Data Lab Results 12/15/20 15:41: WBC 6.8, RBC 5.07, Hgb 15.5, Hct 46.0, MCV 90.8, MCH 30.5, MCHC 33.6, RDW 12.9, Plt Count 436 H, MPV 7.5, Neut % (Auto) 72.3, Lymph % (Auto) 18.8, Cuming % (Auto) 7.2, Eos % (Auto) 0.6, Baso % (Auto) 1.2, Neut # (Auto) 4.9, Lymph # (Auto) 1.3, Cuming # (Auto) 0.5, Eos # (Auto) 0.0, Baso # (Auto) 0.1 12/15/20 15:41: Sodium 142, Potassium 3.6, Chloride 105, Carbon Dioxide 29, Anion Gap 11.6, BUN 15, Creatinine 1.00, Estimated Creat Clear 67, Estimated GFR 57 L, Est GFR ( Amer) 69, Glucose 120 H, Calcium 10.0, Total Bilirubin 0.7, AST 25, ALT 20, Alkaline Phosphatase 92, Total Protein 8.2, Albumin 4.6, Globulin 3.6 H, Albumin/Globulin Ratio 1.3 12/15/20 15:55: Urine Color Yellow, Urine Appearance Sl cloudy, Urine pH 6.0, Ur Specific Devine 1.025, Urine Protein Negative, Urine Glucose (UA) Negative, Urine Ketones Negative, Urine Blood 1+, Urine Nitrate Positive, Urine Bilirubin Negative, Urine Urobilinogen 0.2, Ur Leukocyte Esterase 3+ A, Urine RBC 3-5, Urine WBC 20-50, Ur Squamous Epith Cells Occasional, Urine Bacteria None Result diagrams: 12/15/20 15:41 12/15/20 15:41 Orders (Tests/Meds): ED MEDICATIONS Discontinued Medications Generic Name Dose Route Start Last Admin Trade Name Freq PRN Reason Stop Dose Admin Meclizine HCl 25 mg 12/15/20 16:26 12/15/20 16:34 Meclizine 25mg Tablet PO 12/15/20 16:27 25 mg ONCE ONE Administration ORDERS Category Date Time Status Urine Culture Stat Micro 12/15/20 15:55 Received Medical Decision Narrative: Upon presentation, patient is hemodynamically stable and nontoxic-appearing. Patient presents with positional dizziness and vertigo. Differential diagnosis includes but is not limited to BPPV, cerebral edema, mass-effect. Labs including CBC, CMP were obtained along with a CT head. Patient was given 25 mg p.o. meclizine for symptomatic management. I reviewed patient's labs which were nonactionable. Patient CT head demonstrates improvement from prior CT with encephalomalacia. Did not demonstrate any new intraparenchymal masses or bleeds or cerebral edema. Upon reassessment, patient states that she continues to feel dizzy despite meclizine. It is likely patient has BPPV given that it is worse with any
[2020-12-15 16:30] VITALS: BP 144/81; PULSE 68; RESP 13; O2SAT 100
[2020-12-15 16:38] LABS: Squamous Epithelial Cell,Urine Occasional #/hpf (0-5); WBC,Urine 20-50 #/hpf (0-3)
[2020-12-15 17:35] VITALS: BP 150/88; PULSE 76; RESP 18; TEMP 36.7; O2SAT 98
== END 2020-12-15 17:45 | disposition home or self-care (01) ==
PROVIDERS: Emergency Provider Emergency Medicine; PCP Nurse Practitioner Family
DX: H81.10 Benign paroxysmal vertigo, unspecified ear (principal); G93.9 Disorder of brain, unspecified
CPT/HCPCS: 70450; 80053; 81001; 85025; 87086; 87088; 87186; 99282

== ENCOUNTER → 2021-03-09 17:29 | Outpatient (CLI) | payer MEDICAID, SELFPAY ==
[2021-03-09 18:20] LABS: Chloride 104 mmol/L (98-107); Potassium 3.7 mmoL/L (3.5-5.1); Sodium 139 mmol/L (136-145)
[2021-03-09 18:23] LABS: Anion Gap 8.7 mEq/L (5-15); Blood Urea Nitrogen 9 mg/dl (7-17); Calcium 9.8 mg/dl (8.4-10.2); Carbon Dioxide 30 mmol/L (22.0-30.0); Estimated Glomerular Filt Rate 65 ml/min (>60); GFR (African American) 78 ML/MIN (>60); Glucose 93 mg/dl (74-100)
== END ==
PROVIDERS: Visit Provider Specialist
DX: D32.9 Benign neoplasm of meninges, unspecified (principal); R42 Dizziness and giddiness
CPT/HCPCS: 36415; 80048

== ENCOUNTER → 2021-03-11 09:20 | Outpatient (CLI) | payer MEDICAID, SELFPAY ==
--- NOTE | 2021-03-11 09:20 | MR_ITS ---
PROCEDURE: MR HEAD/BRAIN WO/W CON CLINICAL INDICATION: known left frontal meningoma Vertigo COMPARISON: CT CT HEAD/BRAIN WO CON from 12/15/2020 TECHNIQUE: Routine multiplanar multi echo sequences are performed with 14 mL ProHance gadolinium enhancement. FINDINGS: There is a 1.4 x 1.3 cm homogeneously enhancing dural-based lesion in the left frontal lobe. It is not clear whether this lesion is definitely extra-axial or intra-axial. There is abundant surrounding vasogenic edema associated with this lesion. There is no erosion of the calvarium overlying the lesion. There is mild diffusion restriction within lesion however it some of this corresponds to the region that is calcified on the CT. There are no other enhancing lesions. There is no hydrocephalus. There is no significant midline shift. There is mild mass effect on the frontal horn of the left lateral ventricle by the vasogenic edema. There are no other areas of restricted diffusion. The sinuses are clear. The flow voids are present. Dural venous sinuses are patent. Orbits appear unremarkable. Calvarium appears unremarkable. IMPRESSION: Left frontal homogeneously enhancing dural-based lesion measuring 1.4 x 1.3 cm producing marked vasogenic edema. Differential considerations include meningioma or dural based metastasis. It is unusual for meningiomas to produce this degree of vasogenic edema although this could represent a higher grade meningioma. Referral to neurosurgery is recommended if not already obtained. Dictated by: Arline Contreras MD 03/11/2021 14:13 Arline Contreras MD in [place] 03/11/2021 14:13
== END ==
PROVIDERS: PCP Nurse Practitioner Family; Visit Provider Nurse Practitioner Family
DX: R42 Dizziness and giddiness (principal); D32.9 Benign neoplasm of meninges, unspecified
CPT/HCPCS: 70553; A9576

== ENCOUNTER → 2021-03-30 13:00 | Outpatient (CLI) | payer MEDICAID, SELFPAY ==
[2021-03-30 14:49] LABS: Adenovirus,PCR Not Detected (NotDetected); Coronavirus 229E Not Detected (NotDetected); Coronavirus NL63 Not Detected (NotDetected); Coronavirus OC43 Not Detected (NotDetected); Coronovirus HKU1,PCR Not Detected (NotDetected); Human Metapneumovirus Not Detected (NotDetected); Influenza A, PCR Not Detected (NotDetected); Influenza AH1, 2009 Not Detected (NotDetected); Influenza AH1, PCR Not Detected (NotDetected); Influenza AH3,PCR Not Detected (NotDetected); Influenza B, PCR Not Detected (NotDetected); Parainfluenza 1, PCR Not Detected (NotDetected); Rhinovirus/Enterovirus Not Detected (NotDetected)
[2021-03-30 14:50] LABS: Bordetella Pertussis Not Detected (NotDetected); Chlamydophila Pneumoniae, PCR Not Detected (NotDetected); Mycoplasma Pneumoniae, PCR Not Detected (NotDetected); Parainfluenza 2, PCR Not Detected (NotDetected); Parainfluenza 3, PCR Not Detected (NotDetected); Parainfluenza 4, PCR Not Detected (NotDetected); Respiratory Syncytial Virus Not Detected (NotDetected)
[2021-03-30 17:18] LABS: Coronavirus 19, PCR Detected (NotDetected)
== END ==
PROVIDERS: Visit Provider Nurse Practitioner Family
DX: Z20.822 Contact with and (suspected) exposure to COVID-19 (principal); U07.1 COVID-19; J06.9 Acute upper respiratory infection, unspecified
CPT/HCPCS: 87581; 87632; 87798; C9803; U0003; U0005

== ENCOUNTER 2021-04-01 09:36 | Outpatient (CLI) | payer MEDICAID, SELFPAY ==
[2021-04-01 10:45] VITALS: BP 144/85; PULSE 88; RESP 18; TEMP 36.7; O2SAT 98
[2021-04-01 11:00] VITALS: BP 139/82; PULSE 89; RESP 18; TEMP 36.7; O2SAT 98
[2021-04-01 11:15] VITALS: BP 135/87; PULSE 88; RESP 18; O2SAT 97
[2021-04-01 11:30] VITALS: BP 136/81; BP 149/85; PULSE 86; PULSE 88; RESP 18; O2SAT 98; O2SAT 99
[2021-04-01 11:45] VITALS: BP 140/79; PULSE 84; RESP 18; O2SAT 98
[2021-04-01 12:20] VITALS: BP 134/82; PULSE 81; RESP 18; TEMP 36.8; O2SAT 97
== END 2021-04-01 12:20 | disposition home or self-care (01) ==
LOC: INF 09:38
PROVIDERS: PCP Nurse Practitioner Family; Visit Provider Nurse Practitioner Family
DX: U07.1 COVID-19 (principal); Z23 Encounter for immunization
CPT/HCPCS: 96365

== ENCOUNTER → 2022-06-08 11:50 | Outpatient (CLI) | payer MEDICAID, SELFPAY ==
[2022-06-08 12:39] LABS: Basophils # 0.1 K/mm3 (0-0.2); Basophils % 1.5 % (0.1-2.0); Eosinophils # 0.1 K/mm3 (0.0-0.4); Eosinophils % 2.3 % (0.1-12.0); Hematocrit 45.4 % (37.0-47.0); Hemoglobin 14.8 g/dL (12.2-16.2); Lymphocytes % 20.1 % (10-50); Mean Corpuscular HGB Conc 32.5 g/dL (31.8-35.4); Mean Corpuscular Hemoglobin 30.7 pg (27.0-31.2); Mean Corpuscular Volume 94.4 fl (81-99); Mean Platelet Volume 7.6 fl (7.4-10.4); Monocytes # 0.4 K/mm3 (0.1-1.0); Monocytes % 8.9 % (1.7-9.3); Neutrophils # 3.3 K/mm3 (1.8-7.8); Neutrophils % 67.2 % (37.0-80.0); Platelet Count 426 K/mm3 (142-424); Red Blood Count 4.81 M/mm3 (4.20-5.40); Red Cell Distribution Width 12.8 % (11.5-17.5); White Blood Count 4.9 K/mm3 (4.8-10.8)
[2022-06-08 13:15] LABS: Alanine Aminotransferase 29 U/L (12-78); Albumin Level 4.5 g/dl (3.5-5.0); Albumin/Globulin Ratio 1.5 (1.1-1.8); Alkaline Phosphatase 78 U/L (38-126); Anion Gap 10.4 mEq/L (5-15); Aspartate Amino Transferase 31 U/L (14-36); Bilirubin,Total 0.7 mg/dl (0.2-1.3); Blood Urea Nitrogen 17 mg/dl (7-17); Calcium 9.9 mg/dl (8.4-10.2); Carbon Dioxide 29 mmol/L (22.0-30.0); Chloride 105 mmol/L (98-107); Chol/HDL Ratio 3.1 (1-3.5); Cholesterol 223 mg/dl (140-200); Estimated Glomerular Filt Rate 57 ml/min (>60); GFR (African American) 69 ML/MIN (>60); Glucose 102 mg/dl (74-100); HDL Cholesterol 71 mg/dl (40-60); Potassium 4.4 mmoL/L (3.5-5.1); Sodium 140 mmol/L (136-145); Total Protein,Serum 7.5 g/dl (6.3-8.2); Triglycerides 57 mg/dl (30-150); VLDL Cholesterol 11 mg/dL (0-40)
[2022-06-08 13:26] LABS: Direct LDL Cholesterol 119.32 mg/dL (100-129)
[2022-06-08 13:30] LABS: 25-OH Vitamin D, Total 30.5 ng/mL (30-100)
[2022-06-08 13:45] LABS: Thyroid Stimulating Hormone 2.09 uIU/mL (0.465-4.68)
[2022-06-09 10:15] LABS: HIV Screen 4th Generation wRfx Non Reactive (Non Reactive); HSV 2 IgG, Type Spec <0.91 index (0.00-0.90)
[2022-06-09 14:20] LABS: Rapid Plasma Reagin Ab Titer Non Reactive (NonRea<1:1)
[2022-06-10 14:47] LABS: Peripheral Smear Review Scanned Result
[2022-06-10 21:08] LABS: Neisseria gonorrhoeae, NAA Negative (Negative)
[2022-06-19 03:46] LABS: Hep A Ab, IgM Negative; Hepatitis B Core Antibody IgM Negative; Hepatitis B Surface Antigen Negative; Hepatitis C Antibody <0.1
== END ==
PROVIDERS: PCP Physician Assistant; Visit Provider Physician Assistant
DX: Z20.2 Contact with and (suspected) exposure to infections with a predominantly sexual mode of transmission (principal); B96.29 Other Escherichia coli [E. coli] as the cause of diseases classified elsewhere
CPT/HCPCS: 80053; 80061; 80074; 82306; 84443; 85025; 86593; 86695; 86703; 86790; 87086; 87186; 87210; 87491; 87591; G0432

== ENCOUNTER → 2022-08-02 23:21 | Outpatient (CLI) | payer MEDICAID, SELFPAY | PROVIDERS: PCP Physician Assistant; Visit Provider Physician Assistant | DX: R39.9 Unspecified symptoms and signs involving the genitourinary system (principal); B96.89 Other specified bacterial agents as the cause of diseases classified elsewhere | CPT/HCPCS: 87086; 87088; 87186 ==

== ENCOUNTER 2022-12-31 16:10 | Emergency (ER) | payer MEDICAID, SELFPAY ==
[2022-12-31 16:35] VITALS: BP 137/89; PULSE 78; RESP 18; TEMP 36.9; O2SAT 97; BMI 28.7
--- NOTE | 2022-12-31 17:06 | EXP.UTC ---
Discharge Plan Disposition Patient Disposition: Home, Self-Care Condition: Good Prescriptions Prescriptions: New cyclobenzaprine 10 mg tablet 10 mg PO TID PRN (Reason: muscle spasm) Qty: 12 0RF methylprednisolone [Medrol (Jatin)] 4 mg tablets,dose pack See Rx Instructions .Route .COMPLEX 6 Days Qty: 21 0RF Rx Instructions: taper pack; Referrals Follow up/Referrals: Beulah Zheng PA [Primary Care Provider] - See instructions Activity Restrictions/Add. Instructions Additional Instructions/Restrictions: *Ibuprofen jaspreet 6/8 hours with meal as needed for pain/inflammation *Remember you had a Toradol shot in the clinic today, which is similar to Motrin *Not additional anti-inflammatory like motrin, aleve, advil with the above amount of ibuprofen. You can still take Tylenol every 4 hours as needed if you need something else for pain *Ice 20 minutes every 2 hours for the first 48 hours after the initial injury followed by moist heat every 20 minutes 3-4 times a day to affected area *Muscle relaxer every 8 hours as needed for muscle spasms but remember, it WILL cause drowsiness You cannot take it and drive, operate machinery or care for small children. *Keep this area active, no movement leads to more stiffness, However take it easy and avoid heavy lifting pushing or pulling *Follow up with you family doctor if no improvement for further treatment Clinical Impressions Clinical Impression: Low Back Pain Stand Alone Forms Stand Alone Forms: Work/School Release Instructions Patient Instructions: Low Back Pain Discharge ED Provider: Claire Dhaliwal [facility] General Stated complaint: AO 12/30 back pain Mode of Arrival: Ambulatory Source of Information: Patient Limitations: No Limitations Time Seen by Provider: 12/31/22 17:06 Description of Symptoms (Recalled from Triage Doc. by RN): PATIENT C/O PAIN TO RIGHT LOWER BACK THAT STARTED 2 DAYS AGO AFTER LIFTING HEAVY TRASH CANS HEENT Symptoms (Recalled from RN notes): No Resp Symptoms (Recalled from RN notes): No Skin Symptoms (Recalled from RN notes): No MS Symptoms (Recalled from RN notes): Yes Functional Status (Recalled from RN notes): WNL History of Present Illness Provider Complaint: Patient states she was lifting heavy trash cans at work a couple days ago and she started having pain in her lower back area and at times it goes into her right hip States that she has a bad back but not sure if it is her back or if she may have UTI but she doesnt usually have back pain with a UTI States that feels like it does wheen her back acts up Denies loss of control of bowel or bladder Related Data Previous Rx's Medication Instructions Recorded cyclobenzaprine 10 mg tablet 10 mg PO TID PRN muscle spasm #12 12/31/22 tabs methylprednisolone 4 mg tablets in See Rx Instructions .Route 12/31/22 a dose pack (Medrol (Jatin)) .COMPLEX 6 days #21 tabs Allergies Allergy/AdvReac Type Severity Reaction Status Date / Time No Known Allergies Allergy Verified 10/22/22 09:12 Worker's Comp Is this a Worker's Comp case?: No [facility] Disclaimer: The information contained in this section may have been updated after the patient was seen, as this information can be updated by other users. Medical History Benign paroxysmal positional vertigo Social History Smoking Status: Never smoker second hand exposure: No alcohol intake: current substance use type: denies use current occupational status: employed Travel in the last 8 weeks: None household members: none housing: apartment number of children: 2 current occupational exposures/hazards: No caffeine: Yes ROS Obtained: Yes All systems reviewed & no additional complaints except as documented and Yes Systems reviewed as appropriate & no additional complaints except as documented Luisi
[2022-12-31 17:33] LABS: Microscopic, Urine URINE MICROSCOPIC (MICROSCOPIC)
[2022-12-31 17:50] LABS: Appearance,Urine CLEAR (Clear); Bilirubin,Urine Negative (Negative); Blood, Urine TRACE-I (Negative); Color,Urine STRAW (Yellow); Glucose,Urine (UA) Negative (Negative); Ketones,Urine Negative (Negative); Leukocyte Esterase,Urine Negative (Negative); Nitrate,Urine Negative (Negative); Protein,Urine Negative (Negative); Urobilinogen,Urine 0.2 EU/dl (0.2)
[2022-12-31 18:12] VITALS: BP 137/89; PULSE 78; RESP 18; TEMP 36.9; O2SAT 97
[2022-12-31 18:16] LABS: Bacteria,Urine Trace /lpf; Squamous Epithelial Cell,Urine Occasional #/hpf (0-5)
== END 2022-12-31 18:26 | disposition home or self-care (01) ==
PROVIDERS: Emergency Provider Nurse Practitioner; PCP Physician Assistant
DX: M54.50 Low back pain, unspecified (principal); X50.0XXA Overexertion from strenuous movement or load, initial encounter
CPT/HCPCS: 81001; 96372; 99204; 99212; G0463

== ENCOUNTER 2023-03-05 15:50 | Emergency (ER) | payer MEDICAID, SELFPAY ==
[2023-03-05 15:52] VITALS: BP 148/87; PULSE 100; RESP 18; TEMP 36.9; O2SAT 95; BMI 29.2
--- NOTE | 2023-03-05 16:45 | EXP.UTC ---
Discharge Plan Disposition Patient Disposition: Home, Self-Care Condition: Good Prescriptions Prescriptions: New iruooijgyklwkcm-bvflcvelt-FC [Bromfed DM] 2-30-10 mg/5 mL syrup 10 ml PO Q4-6H PRN (Reason: cold symptoms) Qty: 200 0RF azithromycin 250 mg tablet See Rx Instructions .ROUTE .COMPLEX Qty: 6 0RF Rx Instructions: For 250 mg dose pack: take 500 mg today (day 1), then 250 mg for 4 days (days 2-5) Referrals Follow up/Referrals: Beulah Zheng PA [Primary Care Provider] - See instructions Activity Restrictions/Add. Instructions Additional Instructions/Restrictions: Take Bromfed this weekend and if no better then start antibiotic. Clinical Impressions Clinical Impression: Upper respiratory tract infection Qualifiers: URI type: unspecified URI Qualified Code(s): J06.9 - Acute upper respiratory infection, unspecified Instructions Patient Instructions: DI for Viral Upper Respiratory Infection -- Adult Discharge ED Provider: Joyce Prasad [facility] General Stated complaint: stuffy head, cough, itchy throat Mode of Arrival: Ambulatory Source of Information: Patient Limitations: No Limitations Time Seen by Provider: 03/05/23 16:45 Description of Symptoms (Recalled from Triage Doc. by RN): sinus drainage, coughing, sore throat, itchy watery eyes, stuffy head, and congestion HEENT Symptoms (Recalled from RN notes): Yes Resp Symptoms (Recalled from RN notes): No Skin Symptoms (Recalled from RN notes): No MS Symptoms (Recalled from RN notes): No Functional Status (Recalled from RN notes): n/a History of Present Illness Provider Complaint: Pt reports that she has been sick for over a week with a cough, congestion, runny nose, and itchy watery eyes. She has been taking Mucinex for her symptoms. She states that she is now starting to cough up green phlegm. Related Data Previous Rx's Medication Instructions Recorded azithromycin 250 mg tablet See Rx Instructions PO .COMPLEX #6 03/05/23 tabs dmftjvtdcccwzfr-gzbhughnsswwmab-LQ 10 ml PO Q4-6H PRN cold symptoms 03/05/23 2 mg-30 mg-10 mg/5 mL oral syrup #200 mL (Bromfed DM) Allergies Allergy/AdvReac Type Severity Reaction Status Date / Time No Known Allergies Allergy Verified 03/05/23 16:03 Worker's Comp Is this a Worker's Comp case?: No [facility] Disclaimer: The information contained in this section may have been updated after the patient was seen, as this information can be updated by other users. Medical History Benign paroxysmal positional vertigo Social History Smoking Status: Never smoker second hand exposure: No alcohol intake: current substance use type: denies use current occupational status: employed Travel in the last 8 weeks: None household members: none housing: apartment number of children: 2 current occupational exposures/hazards: No caffeine: Yes ROS Obtained: Yes All systems reviewed & no additional complaints except as documented Constitutional Constitutional: Reports system reviewed and no additional complaints, except as documented, Reports fatigue, Reports headache(s) and Reports malaise Eyes Eyes: Reports system reviewed and no additional complaints, except as documented and Reports itchy eyes ENT Ears, Nose, Mouth, and Throat: Reports system reviewed and no additional complaints, except as documented and Reports headache(s) Cardiovascular Cardiovascular: Reports system reviewed and no additional complaints, except as documented Respiratory Respiratory: Reports system reviewed and no additional complaints, except as documented, Reports change in phlegm color and Reports chest congestion Gastrointestinal Gastrointestingal: Reports system reviewed and no additional complaints, except as documented Genitourinary Female Genitourinary: Reports system reviewed and no additional complai
[2023-03-05 16:57] VITALS: BP 148/70; PULSE 90; RESP 18; TEMP 36.6; O2SAT 98
== END 2023-03-05 16:56 | disposition home or self-care (01) ==
PROVIDERS: Emergency Provider Nurse Practitioner Family; PCP Physician Assistant
DX: R05.1 Acute cough (principal); J06.9 Acute upper respiratory infection, unspecified
CPT/HCPCS: 99212; 99214; G0463

== ENCOUNTER → 2023-03-11 15:08 | Outpatient (CLI) | payer MEDICAID, SELFPAY ==
--- NOTE | 2023-03-11 15:11 | XR_ITS ---
FINAL REPORT CLINICAL HISTORY: cough x2 weeks COMPARISON: None FINDINGS: Two views of the chest were obtained. The heart size and pulmonary vascularity are within normal limits. The mediastinum is normal. No acute pulmonary abnormality is identified. There is no pneumothorax. The bony thorax is intact. IMPRESSION: No active cardiopulmonary disease. Reviewed, Interpreted and Dictated by Mike Cox III, MD Transcribed by Halina Hui Authenticated and [facility]
== END ==
PROVIDERS: PCP Physician Assistant; Visit Provider Student in an Organized Health Care Education/Training Program
DX: R05.9 Cough, unspecified (principal)
CPT/HCPCS: 71046

== ENCOUNTER 2023-12-25 13:13 | Emergency (ER) | payer SELFPAY ==
[2023-12-25 13:15] VITALS: BP 164/93; PULSE 86; RESP 20; TEMP 36.8; O2SAT 99; BMI 30.2
[2023-12-25 13:19] VITALS: BP 164/93; PULSE 89; O2SAT 99
--- NOTE | 2023-12-25 13:22 | ED_ITS ---
Discharge Plan Disposition Patient Disposition: Home, Self-Care Condition: Good Prescriptions Prescriptions: No Action doxycycline hyclate 100 mg capsule 100 mg PO BID Qty: 20 0RF benzonatate 100 mg capsule 100 mg PO BID PRN (Reason: cough) Qty: 14 0RF Referrals Follow up/Referrals: Beulah Zheng PA [Primary Care Provider] - See instructions Activity Restrictions/Add. Instructions Additional Instructions/Restrictions: Please use the boot as needed for pain. Please return with any new or worsening symptoms. Please continue to use rest, ice, elevation, Tylenol, ibuprofen for your pain. Clinical Impressions Clinical Impression: Closed fracture of proximal phalanx of toe of right foot Stand Alone Forms Stand Alone Forms: Work/School Release Instructions Patient Instructions: DI for Foot Fracture Print Language Print Language: Macedonian Discharge ED Provider: Parish Carey Adult HPI General Chief complaint: Extremity Injury, Lower Stated complaint: AO Third toe on right foot pain bruising Time Seen by Provider: 12/25/23 13:22 History of Present Illness HPI narrative: The patient presents with a chief complaint of toe pain and swelling after [place] park on [place]. She reports stepping on her toes while walking under sprinklers and is unsure if she jammed or broke them. The pain worsened after going to work on , and she has been using muscle cream and taking Tylenol or Ibuprofen for pain management. She notes that the affected area looks better than it did initially but still experiences swelling, especially when on her feet. The patient describes the worst pain in the area with visible bruising on her toes. She reports no numbness or tingling but mentions being ticklish. She denies any pain in the ankle but states that it was swollen and that her veins were more prominent in her foot due to the swelling. She expresses concern about potential blood flow problems related to the injury. Please note that above description of symptoms, in this electronic medical record under categorization of recalled from ER triage doctor by RN are reflective of an initial nursing assessment, however, is not reflective of my full history and physical exam that was personally taken and clarified. Cons equentially, this preceding description of symptoms, which may include the patient's categorized chief complaint in the EMR, do not reflect my personal clinical impression, and the ultimate description of history of present illness and patient stated complaints should be deferred to this section of the note. Unless stated otherwise or congruent with this section of the note, additional signs, symptoms, or incongruence should be interpreted as inaccurate with my clinical impression. Related Data Previous Rx's ?Medication ?Instructions ?Recorded doxycycline hyclate 100 mg capsule 100 mg PO BID #20 caps 03/11/23 benzonatate 100 mg capsule 100 mg PO BID PRN cough #14 caps 04/08/23 Allergies Allergy/AdvReac Type Severity Reaction Status Date / Time No Known Allergies Allergy Verified 03/11/23 13:55 [facility] Disclaimer: The information contained in this section may have been updated after the patient was seen, as this information can be updated by other users. Medical History Benign paroxysmal positional vertigo Social History Smoking Status: Never smoker second hand exposure: No alcohol intake: current alcohol intake frequency: holidays/special occasions only substance use type: denies use current occupational status: employed Travel in the last 8 weeks: None household members: none housing: apartment number of children: 2 current occupational exposures/hazards: No caffeine: Yes ROS Obtained: Yes other As per HPI Physical Exam General General appearance: alert and in no apparent distress Head Head exam: atraumatic and normocephalic Eye Eye exam: Present normal appearance Neck Neck exam: Present normal inspection Chest Chest inspection: Present normal inspection and symmetric chest wall rise Respiratory Respiratory exam: Present normal lung sounds bilaterally; Absent respiratory distress Cardiovascular Cardiovascular exam: Present regular rate and normal rhythm Abdominal Exam Abdominal exam: Present soft Neurological Exam Neurological exam: Present alert and oriented X3 Psychiatric Psychiatric exam: Present normal affect and normal mood Skin Skin exam: Present warm and dry Other Other exam information: Tenderness to palpation over dorsum of right foot, distally neurovascularly intact, no ankle tenderness to palpation. Medical Decision Making Medical Records Medical records reviewed: Yes I reviewed the patient's medical records. Sukh Inquiry Pt receiving controlled substance: No Vital Signs: 12/25/23 13:15 12/25/23 13:19 12/25/23 13:30 Temperature 98.3 F Temperature Source Oral Pulse Rate 89 91 H Pulse Rate [Right Radial] 86 Respiratory Rate 20 Blood Pressure 164/93 H 148/84 H Blood Pressure [Right Arm] 164/93 H Blood Pressure Mean [Right Arm] 116 02 Sat by Pulse Oximetry 99 99 98 Oxygen Delivery Method Room Air Room Air Room Air 12/25/23 14:00 12/25/23 14:31 12/25/23 14:46 Temperature 98.0 F Temperature Source Pulse Rate 80 78 80 Pulse Rate [Right Radial] Respiratory Rate 20 Blood Pressure 134/74 125/81 125/67 Blood Pressure [Right Arm] Blood Pressure Mean [Right Arm] 02 Sat by Pulse Oximetry 99 99 Oxygen Delivery Method Room Air Room Air Room Air Orders (Tests/Meds): ORDERS Category Date Time Status Ankle XR -Right minimum 3 Views [XR ankle RT min 3V] Exams 12/25/23 13:31 Completed Stat Foot XR right minimum 3 views [XR foot RT min 3V] Stat Exams 12/25/23 13:31 Completed Medical Decision Narrative: Patient with history and exam per above presenting for evaluation of foot pain Diagnoses considered include fracture, sprain, strain, no clinical evidence of compartment syndrome, vascular injury, nor nerve injury ED workup and treatment included: ORDERS Category Date Time Status Ankle XR -Right minimum 3 Views [XR ankle RT min 3V] Exams 12/25/23 13:31 Completed Stat Foot XR right minimum 3 views [XR foot RT min 3V] Stat Exams 12/25/23 13:31 Completed Imaging was independently visualized and interpreted by me, significant for questionable nondisplaced proximal phalanx fracture Please refer to radiology report for full details. Patient was provided boot for comfort and will follow-up with primary care doctor. She is deemed stable for discharge at this time. I discussed my clinical impression with patient and answered all questions. At this time, the evidence for any other entities in the differential is insufficient to warrant any further testing or ED observation. This was explained to the patient. The patient was advised that persistent or worsening symptoms require further evaluation. I confirmed the patient's understanding of this discussion. Critical Care Critical Care Time Critical Care Time: No
[2023-12-25 13:30] VITALS: BP 148/84; PULSE 91; O2SAT 98
--- NOTE | 2023-12-25 13:31 | XR_ITS ---
PROCEDURE INFORMATION: Exam: XR Right Ankle Exam date and time: 12/25/2023 1:31 PM Age: 58 years old Clinical indication: Injury or trauma; Fall; Blunt trauma; Ankle; Right; Additional info: Lateral ankle pain and swelling, fall TECHNIQUE: Imaging protocol: Radiologic exam of the right ankle. Views: 3 or more views. COMPARISON: CR XR FOOT RT MIN 3V 12/25/2023 1:29 PM FINDINGS: Bones/joints: There is normal anatomic alignment of the right ankle. No evidence of a fracture or destructive bone lesion. The ankle mortise view is normal. Axilla the talus and calcaneus are intact. There is a prominent bone spur at the plantar surface of the calcaneus. Soft tissues: Normal. IMPRESSION: Calcaneal bone spur, otherwise unremarkable study.
--- NOTE | 2023-12-25 13:31 | XR_ITS ---
PROCEDURE INFORMATION: Exam: XR Right Foot Exam date and time: 12/25/2023 1:29 PM Age: 58 years old Clinical indication: Injury or trauma; Fall; Blunt trauma; Foot; Right; Injury details: Bruising on dorsal surface around the mtp joints, especially 2,3,4; Additional info: Toe, foot pain after tripping TECHNIQUE: Imaging protocol: Radiologic exam of the right foot. Views: 3 or more views. COMPARISON: No relevant prior studies available. FINDINGS: Bones/joints: There is a mild bunion deformity. There is otherwise normal alignment of the bones of the right foot. No evidence of an acute fracture or destructive bone lesion. There a deformity in the proximal phalanx of the right 4th toe. On the AP view there appears to be an acute fracture line but on the oblique view this fracture appears healed clinical correlation is recommended to evaluate for point tenderness. There is a prominent bone spur along the plantar surface of the calcaneus. Soft tissues: Normal. IMPRESSION: 1. There is a deformity of the proximal phalanx of the right 4th toe. Is unclear if this represents an acute fracture or old fracture. Clinical correlation with point tenderness is suggested. 2. No other potential fractures are identified in the right foot.
[2023-12-25 14:00] VITALS: BP 134/74; PULSE 80; O2SAT 99
[2023-12-25 14:31] VITALS: BP 125/81; PULSE 78; O2SAT 99
--- NOTE | 2023-12-25 14:31 | PC.NURSE ---
DR ALBERT AT BEDSIDE
[2023-12-25 14:46] VITALS: BP 125/67; PULSE 80; RESP 20; TEMP 36.7; O2SAT 98
== END 2023-12-25 14:47 | disposition home or self-care (01) ==
PROVIDERS: Emergency Provider Emergency Medicine; PCP Physician Assistant
DX: S92.911A Unspecified fracture of right toe(s), initial encounter for closed fracture (principal); W20.8XXA Other cause of strike by thrown, projected or falling object, initial encounter
CPT/HCPCS: 73610; 73630; 99283

== ENCOUNTER 2024-04-08 10:27 | Emergency (ER) | payer SELFPAY ==
[2024-04-08 10:50] VITALS: BP 135/87; PULSE 93; RESP 20; TEMP 37.1; O2SAT 97; BMI 33.2
--- NOTE | 2024-04-08 11:01 | ED_ITS ---
Discharge Plan Prescriptions Prescriptions: No Action No Known Home Medications Referrals Follow up/Referrals: Char Ordaz APRN [Primary Care Provider] - See instructions Activity Restrictions/Add. Instructions Additional Instructions/Restrictions: *Monitor Temp, Over the counter Motrin or Tylenol as directed/as needed Tylenol every 4 hours and Motrin every 6 hours (as long as your family doctor has told you that you can take it) for fever or pain. and straight to ER if unable to lower temp less than 101.0 after medication given *Warm fluids like tea with honey may help to soothe the throat? *Sleep elevated *Humidifier/Vaporizer Follow up IMMEDIATELY for new or worsening symptoms or no Noticeable improvement over the next 48-72 hours. 911 for difficulty breathing or swallowing You were tested for today for COVID19 your test result should be back in the next 24 hours, you may check your results on the [facility] Portal Clinical Impressions Clinical Impression: Viral syndrome Stand Alone Forms Stand Alone Forms: Work/School Release Instructions Patient Instructions: DI for Viral Syndrome Print Language Print Language: Hebrew Discharge ED Provider: Claire Dhaliwal [facility] [place] HPI General Stated complaint: bodyaches, fever Time Seen by Provider: 04/08/24 11:01 History of Present Illness Provider Complaint: Patient states that she started feeling bad last night with body aches chills and fever States that she feels like she did when she had COVID and wanted to get tested Related Data Home Medications ?Medication ?Instructions ?Recorded ?Confirmed No Known Home Medications 04/08/24 04/08/24 Allergies Allergy/AdvReac Type Severity Reaction Status Date / Time No Known Allergies Allergy Verified 02/01/24 11:17 [facility] Disclaimer: The information contained in this section may have been updated after the patient was seen, as this information can be updated by other users. Medical History (Updated 04/08/24 @ 11:09 by Brittany Ceron RN) Anxiety Hyperlipidemia Benign paroxysmal positional vertigo Social History Smoking Status: Never smoker second hand exposure: No alcohol intake: current alcohol intake frequency: holidays/special occasions only substance use type: denies use current occupational status: employed household members: none housing: apartment number of children: 2 current occupational exposures/hazards: No caffeine: Yes ROS Obtained: Yes All systems reviewed & no additional complaints except as documented and Yes Systems reviewed as appropriate & no additional complaints except as documented Constitutional Constitutional: Reports system reviewed and no additional complaints, except as documented, Reports as per HPI, Reports body ache, Reports chills and Reports fever(s) Eyes Eyes: Reports system reviewed and no additional complaints, except as documented and Reports as per HPI ENT Ears, Nose, Mouth, and Throat: Reports system reviewed and no additional complaints, except as documented, Reports as per HPI and Reports nasal congestion Cardiovascular Cardiovascular: Reports system reviewed and no additional complaints, except as documented and Reports as per HPI Respiratory Respiratory: Reports system reviewed and no additional complaints, except as documented and Reports as per HPI Gastrointestinal Gastrointestingal: Reports system reviewed and no additional complaints, except as documented and as per HPI Genitourinary Female Genitourinary: Reports system reviewed and no additional complaints, except as documented and Reports as per HPI Physical Exam General General appearance: alert and in no apparent distress ENT ENT exam: Present normal exam, normal oropharynx, mucous membranes moist and TM's normal bilaterally Respiratory Respiratory exam: Present normal lung sounds bilaterally; Absent respiratory distress or wheezes Cardiovascular Cardiovascular exam: Present regular rate and normal heart sounds; Absent normal rhythm or bradycardia Abdominal Exam Abdominal exam: Present soft and normal bowel sounds; Absent distention or tenderness Neurological Exam Neurological exam: Present alert, oriented X3 and normal gait Medical Decision Making Medical Records Screening: Per USPSTF and CDC recommendations, given the prevalence of disease in our region, it is our hospital?s policy to screen for HIV and viral Hepatitis for all patients aged 18 and over and those with ongoing risk factors. Sukh Inquiry Pt receiving controlled substance: No Sukh was queried for this patient: No Lab Data Lab results reviewed: Yes I reviewed the patient's lab results. Orders (Tests/Meds): ORDERS Category Date Time Status Covid-19 Nasal PCR ([facility]) Routine Lab 04/08/24 10:47 Received
[2024-04-08 11:03] LABS: UTC Influenza A Antigen Negative (Negative); UTC Influenza B Antigen Negative (Negative)
[2024-04-08 11:23] VITALS: BP 135/87; PULSE 93; RESP 20; TEMP 37.1; O2SAT 97
== END 2024-04-08 11:26 | disposition home or self-care (01) ==
PROVIDERS: Emergency Provider Nurse Practitioner; PCP Family Medicine
DX: B34.9 Viral infection, unspecified (principal)
CPT/HCPCS: 87635; 87804; 99213; G0381

== ENCOUNTER 2024-06-29 15:51 | Outpatient (CLI) | payer BC, SELFPAY ==
[2024-07-02 15:41] LABS: Chlamydia trachomatis Negative (Negative); Neisseria gonorrhoeae Negative (Negative); Trichomonas vaginalis Negative (Negative)
== END 2024-06-29 23:59 | disposition home or self-care (01) ==
LOC: LAB.DROPOF 07-02 11:56
PROVIDERS: Visit Provider Family Medicine
DX: N76.0 Acute vaginitis (principal)
CPT/HCPCS: 87210; 87491; 87591; 87661

== ENCOUNTER 2024-07-06 18:36 | Outpatient (CLI) | payer BC, SELFPAY ==
[2024-07-06 18:49] LABS: Basophils # 0.1 K/mm3 (0-0.2); Basophils % 1.1 % (0.1-2.0); Eosinophils # 0.2 K/mm3 (0.0-0.4); Eosinophils % 3.4 % (0.1-12.0); Hematocrit 42.6 % (37.0-47.0); Lymphocytes # 1.1 K/mm3 (0.7-4.5); Mean Corpuscular HGB Conc 32.9 g/dL (31.8-35.4); Mean Corpuscular Hemoglobin 30.6 pg (27.0-31.2); Mean Corpuscular Volume 93.2 fl (81-99); Mean Platelet Volume 8.7 fl (7.4-10.4); Monocytes # 0.6 K/mm3 (0.1-1.0); Monocytes % 11.1 % (1.7-9.3); Neutrophils # 3.7 K/mm3 (1.8-7.8); Neutrophils % 65.2 % (37.0-80.0); Platelet Count 401 K/mm3 (142-424); Red Blood Count 4.57 M/mm3 (4.20-5.40); Red Cell Distribution Width 12.4 % (11.5-17.5); White Blood Count 5.6 K/mm3 (4.8-10.8)
[2024-07-06 19:05] LABS: Albumin Level 4.6 g/dl (3.5-5.0); Chloride 104 mmol/L (98-107); Hemoglobin A1C 5.3 % (4.0-6.0); Potassium 4.5 mmoL/L (3.5-5.1); Sodium 139 mmol/L (136-145)
[2024-07-06 19:08] LABS: Alanine Aminotransferase 30 U/L (12-78); Albumin/Globulin Ratio 1.6 (1.1-1.8); Alkaline Phosphatase 100 U/L (38-126); Anion Gap 14.5 mEq/L (5-15); Aspartate Amino Transferase 26 U/L (14-36); Bilirubin,Total 0.6 mg/dl (0.2-1.3); Blood Urea Nitrogen 21 mg/dl (7-17); Carbon Dioxide 25 mmol/L (22.0-30.0); Cholesterol 213 mg/dl (140-200); Estimated Glomerular Filt Rate 57 ml/min (>60); GFR (African American) 68 ML/MIN (>60); Globulin 2.9 g/dL (1.3-3.2); Total Protein,Serum 7.5 g/dl (6.3-8.2); Triglycerides 76 mg/dl (30-150); VLDL Cholesterol 15 mg/dL (0-40)
[2024-07-06 19:09] LABS: Calcium 10.2 mg/dl (8.4-10.2); Chol/HDL Ratio 3.6 (1-3.5); Glucose 132 mg/dl (74-100); HDL Cholesterol 59 mg/dl (40-60)
[2024-07-06 19:20] LABS: Direct LDL Cholesterol 112.29 mg/dL (100-129)
[2024-07-06 19:26] LABS: 25-OH Vitamin D, Total 23.6 ng/mL (30-100)
[2024-07-06 19:40] LABS: Thyroid Stimulating Hormone 2.73 uIU/mL (0.465-4.68)
[2024-07-10 08:17] LABS: Estradiol <5.0 pg/mL (0.0-54.7); Progesterone 0.1 ng/mL (.)
[2024-07-11 23:10] LABS: Estrogen 71 pg/mL (40-244)
== END 2024-07-06 23:59 | disposition home or self-care (01) ==
LOC: LAB.DROPOF 18:37
PROVIDERS: PCP Family Medicine; Visit Provider Family Medicine
DX: Z01.89 Encounter for other specified special examinations (principal); Z13.1 Encounter for screening for diabetes mellitus; E78.5 Hyperlipidemia, unspecified; E55.9 Vitamin D deficiency, unspecified
CPT/HCPCS: 80053; 80061; 82306; 82670; 82672; 83036; 84144; 84443; 85025; 87522; 87536

== ENCOUNTER 2024-07-09 17:40 | Outpatient (CLI) | payer BC, SELFPAY ==
[2024-07-09 21:05] LABS: Coronavirus 19, PCR Not Detected (NotDetected); Influenza A, PCR Not Detected (NotDetected); Influenza B, PCR Not Detected (NotDetected)
== END 2024-07-09 23:59 | disposition home or self-care (01) ==
LOC: LAB.DROPOF 07-10 18:04
PROVIDERS: PCP Nurse Practitioner; Visit Provider Nurse Practitioner
DX: R50.9 Fever, unspecified (principal); R35.0 Frequency of micturition
CPT/HCPCS: 87086; 87088; 87186; 87636